=== PATIENT | female | born 1935 | race Caucasian/White ===

== ENCOUNTER 2016-06-02 08:37 | Emergency (ER) | payer MEDICARE, OTHER | END 2016-06-02 12:00 | disposition short-term general hospital (02) | LOC: ER 08:37 | DX: I20.0 Unstable angina (principal); F32.9 Major depressive disorder, single episode, unspecified; K21.9 Gastro-esophageal reflux disease without esophagitis; E03.9 Hypothyroidism, unspecified; H26.9 Unspecified cataract; Z90.49 Acquired absence of other specified parts of digestive tract; Z79.899 Other long term (current) drug therapy; Z88.1 Allergy status to other antibiotic agents; Z88.8 Allergy status to other drugs, medicaments and biological substances | CPT/HCPCS: 36415; 96372; J1650 ==